=== PATIENT | male | born 1980 | race Two or more races ===

== ENCOUNTER 2018-05-25 | Emergency (ER) | payer OTHER | END 2018-05-25 13:19 | disposition home or self-care (01) | DX: S39.012A Strain of muscle, fascia and tendon of lower back, initial encounter (principal); E03.9 Hypothyroidism, unspecified; Z87.891 Personal history of nicotine dependence; Z79.899 Other long term (current) drug therapy; W11.XXXA Fall on and from ladder, initial encounter; Y93.39 Activity, other involving climbing, rappelling and jumping off; Y92.69 Other specified industrial and construction area as the place of occurrence of the external cause ==

== ENCOUNTER 2019-06-07 03:29 | Emergency (ER) | payer OTHER ==
[2019-06-07 03:47] VITALS: BP 137/88; PULSE 84; RESP 19; TEMP 98.2
[2019-06-07] MEDS ORDERED: LIDOCAINE 1% INJ 10MG/ML (20 ML MDV) SQ ONE (04:27)
[2019-06-07] MEDS ORDERED: BUPIVACAINE (PF) 0.25% 30 ML VIAL SQ STA (04:27)
--- NOTE | 2019-06-07 04:35 | ED ---
ENT HPI - General Chief complaint: Dental/Oral Stated complaint: Dental Pain Source: patient Mode of arrival: ambulatory Limitations: no limitations - History of Present Illness Initial comments: Zeb is a 38-year-old child presents the emergency department today for evaluation of pain in tooth #16. Patient reports he was seen by the dentist previously and had a temporary filling placed, he is scheduled to have a root canal however earlier in the day his filling came out and patient reports she's having excruciating pain in the tooth. He believes the nerve is exposed. Patient reports he contacted his dentist and they moved his follow-up appointment up to this coming Monday but could not get him in any sooner. He then attempted to contact the dental school who couldn't get him in and the next 2 weeks. Patient reports he cannot get any relief from the pain so he came to the ER for evaluation. - Related Data Home Medications Medication Instructions Recorded Confirmed Levothyroxine Sodium [Synthroid] 125 mcg PO DAILY 08/29/14 06/07/19 Vitamin D3(Unknown Dose) 1 tab PO DAILY 07/18/16 06/07/19 Previous Rx's Medication Instructions Recorded Ibuprofen [Motrin] 800 mg PO Q8HR PRN #30 tab 08/29/14 Ibuprofen [Motrin] 800 mg PO Q6HR PRN #30 tab 07/18/16 Allergies Allergy/AdvReac Type Severity Reaction Status Date / Time No Known Allergies Allergy Verified 07/18/16 17:17 Review of Systems ROS Statement: Those systems with pertinent positive or pertinent negative responses have been documented in the HPI. ROS Other: All systems not noted in ROS Statement are negative. Past Medical History Past Medical History: Thyroid Disorder Additional Past Medical History / Comment(s): anxiety, thyroid History of Any Multi-Drug Resistant Organisms: None Reported Past Surgical History: No Surgical Hx Reported Past Psychological History: Anxiety, Depression Smoking Status: Former smoker Past Alcohol Use History: None Reported Past Drug Use History: None Reported General Exam - General Exam Comments Initial Comments: Physical Exam GENERAL: Appears uncomfortable HENT: Normocephalic, Atraumatic. Tooth #16 has a large defect, no surrounding erythema or infection EYES: PERRL, EOMI PULMONARY: Unlabored respirations CARDIOVASCULAR: RRR ABDOMEN: Soft and nontender with normal bowel sounds. SKIN: Skin is clear with no lesions or rashes and otherwise unremarkable. : Deferred NEUROLOGIC: Patient is alert and oriented x3. Moving all extremities spontaneously MUSCULOSKELETAL: Normal extremities with adequate strength and full range of motion. No lower extremity swelling or edema. No calf tenderness. PSYCHIATRIC: Normal psychiatric evaluation Limitations: no limitations Course Vital Signs 06/07/19 03:43 Temperature 98.2 F Pulse Rate 84 Respiratory 19 Rate Blood Pressure 137/88 O2 Sat by Pulse 99 Oximetry Procedures - Nerve Block Consent Obtained: verbal consent Local Anesthetic Used: Marcaine 0.25% Amount of anesthesia used: 2 Side: left Intraoral Nerve Block: inferior alveolar Procedure Successful: Yes Complications: none Patient Tolerated Procedure: well Medical Decision Making - Medical Decision Making The patient was seen and evaluated history was obtained from the patient Physical exam does reveal a broken tooth with root exposed, I will provide the patient with a dental block for anesthesia and advised him to go to the drug store for some temporary filling material. risks/benefits of dental block were discussed Patient with resolution of dental pain after dental block Patient discharged home in stable condition Disposition Clinical Impression: Dental caries, Toothache Disposition: HOME SELF-CARE Instructions (If sedation given, give patient instructions): Dental Caries (ED), Toothache (ED) Is patient prescribed a controlled substance at d/c from ED?: No Referrals: Dipak Contreras MD [Primary Care Provider] - 1-2 days
[2019-06-07] MEDS ORDERED: ACET/COD 300 MG/30 MG STARTER PACK 6 TAB BTL PO STA (04:53)
== END 2019-06-07 05:04 | disposition home or self-care (01) ==
LOC: EC 03:29
DX: K02.9 Dental caries, unspecified (principal); S02.5XXA Fracture of tooth (traumatic), initial encounter for closed fracture; E07.9 Disorder of thyroid, unspecified; Z87.891 Personal history of nicotine dependence; Z79.890 Hormone replacement therapy
CPT/HCPCS: 99282; 64400; J2001